=== PATIENT | male | born 1975 | race Caucasian/White ===

== ENCOUNTER 2018-08-14 06:23 | Emergency (ER) | payer OTHER, MEDICAID, SELFPAY ==
[2018-08-14] VITALS (7 sets, daily range): BP systolic 87–125; BP diastolic 63–84; PULSE 96–122; RESP 17–22; TEMP 35.8–36.8; O2SAT 91–98; BMI 27.7
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
[2018-08-14] MEDS: SODIUM CHLORIDE 0.9% 1,000 ML 1000 ML IV ×2 (06:45→09:37)
[2018-08-14 06:49] LABS: Add Manual Diff / Slide Review NO; Basophils Percent Auto 0.6 % (0-2); Eosinophils Percent Auto 2.2 % (2-4); Hematocrit 45.5 % (41-53); Hemoglobin 15.6 g/dL (13.5-17.5); Lymphocytes Percent Auto 16.4 % (25-40); Mean Corpuscular HGB Conc 34.2 % (30-36); Mean Corpuscular Hemoglobin 32.4 PG (26-34); Mean Corpuscular Volume 94.6 fL (80-100); Monocytes Percent Auto 9.8 % (3-14); Neutrophils Absolute Auto 6900 /uL (3000-5900); Platelet Count 381 X10^3/uL (150-400); Red Blood Cell Count 4.81 X10^6/uL (4.5-5.9); Red Cell Distribution Width 13.8 % (11.6-14.8); White Blood Cell Count 9.7 X10^3/uL (4.5-11.0)
[2018-08-14 06:55] LABS: Acetaminophen < 10 ug/mL (10-30); Salicylate < 1.0 mg/dL (<20)
[2018-08-14 06:56] LABS: Alanine Aminotransferase 14 IU/L (21-72); Albumin Globulin Ratio 1.7 (1.0-2.8); Alkaline Phosphatase 123 U/L (38-126); Aspartate Aminotransferase 32 IU/L (17-59); Bilirubin Total 1.1 mg/dL (0.2-1.3); Blood Urea Nitrogen 13 mg/dL (9-20); Calcium 10.1 mg/dL (8.4-10.2); Carbon Dioxide 16 mmol/L (22-32); Chloride 101 mmol/L (98-107); Estimated Glomerular Filt Rate > 60.0 mL/min (>60); Ethanol (ETOH) < 10 mg/dL; Globulin 2.9 g/dL (1.7-4.1); Glucose 118 mg/dL (70-100); HEMOLYSIS < 15 (0-50); Potassium 3.6 mmol/L (3.4-5.1); Sodium 146 mmol/L (137-145); Total Protein 7.9 g/dL (6.3-8.2)
[2018-08-14] MEDS: TET,DIPH,PERTUSS(ACELL),VAC/PF 0.5 ML SYRINGE IM (08:57)
[2018-08-14 10:21] LABS: Appearance Urine UA SL CLOUDY; Bacteria Urine None Seen; Bilirubin Urine UA NEGATIVE (NEGATIVE); Color Urine UA YELLOW; Glucose Urine UA NEGATIVE (Normal); Ketones Urine UA 1+ (NEGATIVE); Leukocyte Esterase Urine UA NEGATIVE (NEGATIVE); Nitrite Urine UA Negative (Negative); Occult Blood Urine UA 1+ (Negative); Protein Urine UA 1+ (Negative); Specific Gravity Urine UA 1.025 (1.000-1.035); Urobilinogen Urine UA 0.2 E.U./dL (0.2); WBC Urine None Seen (0-5/HPF)
[2018-08-14 10:32] LABS: Urine Amphetamines Positive (Negative); Urine Barbiturates Negative (Negative); Urine Benzodiazepines Negative (Negative); Urine Cocaine Negative (Negative); Urine MDMA Negative (Negative); Urine Methadone Negative (Negative); Urine Methamphetamines Positive (Negative); Urine Morphine/Opi cutoff 2000 Negative (Negative); Urine Oxycodone Negative (Negative); Urine Phencyclidine Negative (Negative); Urine Tetrahydrocannabinol Negative (Negative); Urine Tricyclic Antidepressant Negative (Negative)
[2018-08-14 10:35] LABS: Culture Indicated Urine Cult Not Indicated; Granular Casts Urine 1-5/LPF; Mucus Urine 2+ (Negative); RBC Urine 1-5/HPF (0-5/HPF); Squamous Epithelial Cell Urine >30 /HPF
--- NOTE | 2018-08-14 11:01 | PC.NURSE ---
progress note [id number] report from Rosa RIVERA, Pt. alert and oriented and under jennifer hugger and two blankets. pt. reporting feeling much better. oral temp 97.0 0830 patient brought scrubs and flip flops to wear for discharge as clothes are wet. pt. continues to feel better. 1000 pt. wanted to speak with MD to discuss his reservations about discharge. 1030 pt. discharged to home
== END 2018-08-14 10:30 | disposition home or self-care (01) ==
PROVIDERS: Emergency Medicine; Emergency Provider Emergency Medicine
DX: T68.XXXA Hypothermia, initial encounter (principal); W16.92XA Jumping or diving into unspecified water causing other injury, initial encounter
CPT/HCPCS: 36591; 71045; 80053; 80305; 80320; 80329; 81001; 85025; 90471; 93005; 93041; 96360; 96361; 99285; 90715; G0480